=== PATIENT | female | born 1955 | race Caucasian/White ===

== ENCOUNTER → 2017-01-19 | Outpatient (CLI) | payer OTHER ==
[~2017-01-19] MED LIST: ASPIRIN81 M2 PO; ATENOLOL PO; BRILINTA90 MG PO; CARVEDILOL3.125 MG PO; DOCUSATE SODIU100 MG PO; FAMOTIDINE20 M1 PO; FLUOXETINE HCL40 M1 PO; GABAPENTIN600 MG PO; HUMALOG100 UNIT/1; LANTUS100 UNITS/ SUBQ; LASIX PO; LASIX80 MG PO; LIPITOR80 MG PO; LISINOPRIL PO; METOCLOPRAMIDE H5 MG PO; NEURONTIN300 MG PO; NEURONTIN600 MG PO; NORVASC PO; OMEPRAZOLE20 M2 PO; OMNICEF300 M1 PO; PATIENT'S PHARMACY; PROZAC40 M1 PO; RESTASIS1 EACH OU; TRESIBA FL100 UNIT/1 SUBQ; ZESTRIL40 MG PO
== END | disposition home or self-care (01) ==
LOC: CLAB 11:08
DX: E10.65 Type 1 diabetes mellitus with hyperglycemia (principal)
CPT/HCPCS: 36415; 83036

== ENCOUNTER → 2017-01-29 | Outpatient (CLI) | payer OTHER ==
[2017-01-29 15:21] LABS: URINE APPEARANCE CLOUDY; URINE BILIRUBIN NEG (NEG); URINE BLOOD NEG (NEG); URINE COLOR YELLOW; URINE GLUCOSE >1000 MG/DL (NEG); URINE KETONE NEG (NEG); URINE LEUKOCYTE ESTERASE 3+ (NEG); URINE NITRATE NEG (NEG); URINE PROTEIN NEG (NEG)
[2017-01-29 15:21] LABS: MEAN CELL VOLUME 89.8 FL (83-96); MEAN CORPUSCULAR HEMOGLOBIN 29.3 PG (28-34); MEAN CORPUSCULAR HGB CONC 32.6 g/dL (30-36); MEAN PLATELET VOLUME 8.8 FL (6.5-11.5); RED BLOOD COUNT 4.12 X10e (3.90-5.30); RED CELL DISTRIBUTION WIDTH 13.3 % (11.0-15.5); WHITE BLOOD COUNT 7.5 X10e3 (4.0-10.5)
[2017-01-29 15:23] LABS: URINE SOURCE CLEAN CATCH
[2017-01-29 15:26] LABS: URBCS1 AUWI 0-2 /[HPF] (0-2); URINE BACTERIA AUWI 4+ (NEGATIVE); URINE SQUAMOUS EPITHELIAL CELL NONE SEEN /[HPF]; UWBCS1 AUWI 50-100 (0-5)
[2017-01-29 15:46] LABS: BUN/CREATININE RATIO 27.27; CALCIUM SERUM 8.9 mg/dL (8.4-10.2); CREATININE SERUM 2.2 mg/dL (0.6-1.4); GLOM FILT RATE Estimated 23.4 mL/min (>60); PHOSPHOROUS 5.2 mg/dL (2.5-4.6)
[2017-01-29 15:53] LABS: POTASSIUM 5.6 mmol/L (3.5-5.1)
[2017-01-30 19:06] LABS: MICROALB UR (PNL) 1.9 mg/dL (***)
== END | disposition home or self-care (01) ==
LOC: CLAB 14:42
PROVIDERS: Internal Medicine Nephrology
DX: N18.3 Chronic kidney disease, stage 3 (moderate) (principal)
CPT/HCPCS: 36415; 80048; 81003; 82043; 82310; 82570; 83970; 84100; 85027

== ENCOUNTER 2017-02-27 19:55 | Inpatient (IN) | payer OTHER ==
--- NOTE | ~2017-02-27 | CR72 ---
[facility] A Service of [facility] & [facility] RADIOLOGY TEXT RESULTS PATIENT: RADHA RIBEIRO LOCATION: [address]08 : [birth year] UNIT #: [id number] AGE: [address]: Lorie Pratt MD SEX: F ORDER DR: [id number] [facility] [address] [place], [place] [address] [id number] MR#: [id number] #: [id number] NAME: RADHA RIBEIRO : 1955 SEX: F STUDY DATE/TIME: 02/28/2017 13:07 UNIT: [facility] ROOM: [facility] STUDY DESCRIPTION: CR Chest Single View Portable Attending Physician: Cherie Justice M.D. Ordering Physician: Vinnie Nesbitt M.D. Primary Care Physician: Nacho Booker M.D. MEDICAL IMAGING REPORT This report is preliminary unless electronic signature is present EXAM Portable chest 02/28/2017 HISTORY Respiratory failure and shortness of breath since 02/27/2017. Benign essential hypertension. FINDINGS The heart is normal in size. There has been interval development of infiltrate in the right upper lobe as well as mild pulmonary edema. There is blunting of the costophrenic angles bilaterally. No pneumothorax. IMPRESSION 1. Interval development of an infiltrate in the right upper lobe compared with 02/27/2017. 2. Interval development of mild pulmonary edema. Dictated by... Tod Lr M.D. THIS IS AN ELECTRONICALLY VERIFIED REPORT Tod Lr M.D. at 03/01/2017 8:08 AM GENEVIEVE/janice TD: 02/28/2017 13:42 JOB #: [id number] MEDICAL IMAGING REPORT Page 1 of 1 COPY
--- NOTE | ~2017-02-27 | HP ---
Unit #: [id number] #: [id number] Patient: RADHA RIBEIRO [id number] [address] [place], [place] [address] [id number] I MR#: [id number] NAME: RADHA RIBEIRO ROOM: [facility] Age: 62 Sex: F Admission Date: 02/27/2017 : 1955 Attending Physician: Cherie Justice M.D. Primary Care Physician: Nacho Booker M.D. HISTORY AND PHYSICAL CHIEF COMPLAINT Nausea, vomiting, high blood sugar. DISCUSSION This is a 62-year-old female with past medical history of coronary artery disease, history of hypertension, diabetes, dyslipidemia, GERD, anxiety, depression, diabetic peripheral neuropathy, chronic kidney disease (follows with Dr. Mckenna), obstructive sleep apnea and on CPAP at home. She had a cardiac cath, which was done on December 15, 2016 and showed LAD 100% occluded but distally filled by collaterals, left circumflex 20% stenosis, right coronary artery 30% stenosis. She was brought to the emergency room today with the chief complaint that she has been having nausea, vomiting, high blood sugar, and she was brought to the emergency room. In the ER she was found to have BUN of 60, creatinine 2.2, and potassium is 6.3, CO2 11, sodium 126, blood sugar 1,140. She was found to be in DKA, elevated lactic acid level, and she has been admitted. She denies chest pain. She says she has been having nausea, vomiting, high blood sugar, feels fatigued, tired. Denies chest pain. Denies loss of consciousness, headache, dizziness or any other complaint. PAST MEDICAL HISTORY 1. History of coronary artery disease status post cath in December 2016, this year. Showed LAD 100% but distally filled by collaterals, left circumflex 12% stenosis, right coronary artery 30% stenosis with ejection fraction 55%. 2. History of diabetes, on insulin pump. 3. Hypertension. 4. Dyslipidemia. 5. GERD. 6. Anxiety and depression. 7. Chronic kidney disease, followed by Dr. Mckenna. Her labs from here on January 29, 2017 shows BUN 60, creatinine 2.22. 8. History of obstructive sleep apnea, on CPAP. 9. Obesity. PAST SURGICAL HISTORY History of cardiac cath. SOCIAL HISTORY She denies smoking. She denies alcohol. She denies illicit drug use. FAMILY HISTORY She denies any family history of coronary artery disease or diabetes. Unit #: [id number] #: [id number] Patient: RADHA RIBEIRO MEDICATIONS FROM HOME 1. Neurontin 300 mg p.o. at dinnertime. 2. Lipitor 80 mg at bedtime. 3. Neurontin 300 mg daily in the morning and 600 mg at bedtime. 4. Norvasc 5 mg daily. 5. Zestril 40 mg daily. 6. Tenormin 100 mg daily. 7. Fluoxetine 40 mg b.i.d. 8. Lasix 80 mg daily. 9. Aspirin 81 mg daily. 10. Famotidine 20 mg daily. 11. Colace 100 mg daily. REVIEW OF SYSTEMS All review of systems is negative except as in history of present illness. PHYSICAL EXAMINATION GENERAL: Middle-aged female lying in bed comfortably. Currently not in any distress. She is alert, awake, oriented x3. CURRENT VITALS: Temp is 97.9, heart rate 103, respiratory 20, blood pressure 83/41. HEENT: Pupils are equal and reactive to light and accommodation. Head is normocephalic and atraumatic. NECK: Neck is supple. No JVD. HEART: S1, S2. Regular rate and rhythm. LUNGS: Lungs are clear to auscultation bilaterally. No rhonchi. No wheezing. ABDOMEN: Abdomen is soft, nontender, nondistended. Bowel sounds are positive. EXTREMITIES: Inspection is normal. No cyanosis. No clubbing. No edema. NEUROLOGIC: No focal neurologic deficits. Cranial nerves II-XII intact. SKIN: Skin is warm and dry. PSYCHIATRIC: Normal mood and affect. DIAGNOSTIC STUDIES LABORATORY WORKUP: Sodium 126, potassium 6.3, chloride 91, CO2 11, glucose 1,140, BUN 53, creatinine 2.9, AST 51, ALT 28, alkaline phosphatase 124. Beta hydroxybutyrate 7.92. Lactic acid level 4.6. White count 17, hemoglobin 10, hematocrit 33, platelets 241. ABG - pH 7.08, CO2 32, bicarb 9.7. Troponin 3.37, CK-MB 19.6. IMAGING: Chest x-ray shows no infiltrates. No acute findings. Also, chest x-ray shows mild vascular congestion, borderline cardiomegaly. Nonobstructive bowel gas pattern on abdominal series. ASSESSMENT AND PLAN 1. Diabetic ketoacidosis. She is on insulin pump at home. Will hold it. Start the patient on DKA insulin protocol. 2. Hypotension. She already received 3 liters of normal saline in the emergency room. Will start the patient on Levophed. 3. Non-ST elevation MA with recent cardiac cath in December 2016. Showed LAD 100% with good collaterals, filled by collaterals; left circumflex 20% stenosis and right coronary artery 30% stenosis. Will give Lovenox 1 mg/kg one dose, aspirin 325 and ask cardiology, Dr. Hill to evaluate while in the hospital. 4. Hypertension; now hypotensive. Hold all blood pressure medications. Hold Tenormin, Zestril, Norvasc. Unit #: [id number] #: [id number] Patient: RADHA RIBEIRO 5. History of dyslipidemia. Continue Lipitor. 6. History of GERD. 7. History of anxiety and depression. Hold fluoxetine at this time. 8. Diabetic peripheral neuropathy. Will hold Neurontin. 9. Chronic kidney disease. Will ask Dr. Mckenna to evaluate. 10. Hyperkalemia. The patient was already given (1) and also given calcium chloride. Will monitor. 11. History of GERD. Place on IV Protonix and Zofran. 12. Obstructive sleep apnea. Uses CPAP at home. 13. Obesity. Dictated by Delia Ocampo/junior TD: 02/28/2017 08:32 JOB #: [id number] HISTORY AND PHYSICAL Page 1 of 1 X X HISTORY AND PHYSICAL
--- NOTE | ~2017-02-27 | CR2 ---
[facility] A Service of [facility] & [facility] RADIOLOGY TEXT RESULTS PATIENT: RADHA RIBEIRO LOCATION: CICCU2 CICCU2-02 : 55 UNIT #: [id number] AGE: [address]: Cherie Justice MD SEX: F ORDER DR: [id number] [facility] [address] [place], [place] [address] [id number] MR#: [id number] Acc #: [id number] NAME: RADHA RIBEIRO : 1955 SEX: F STUDY DATE/TIME: 02/27/2017 20:40 UNIT: [facility] ROOM: [id number] STUDY DESCRIPTION: CR Abdomen Acute Series Attending Physician: Cherie Justice M.D. Ordering Physician: Socrates Robles M.D. Primary Care Physician: Nacho Booker M.D. MEDICAL IMAGING REPORT This report is preliminary unless electronic signature is present EXAM Acute abdominal series. HISTORY Chest pain, abdominal pain, nausea, vomiting, onset today. FINDINGS PA, upright view of the chest demonstrates moderate lung volumes satisfactory technique. Mild pulmonary vascular congestion. Borderline cardiomegaly. No free air noted under diaphragms. Supine and upright views of the abdomen demonstrates a nonobstructive bowel gas pattern. No abnormal masses or calcifications. No organomegaly. Osseous structures unremarkable. IMPRESSION 1. Borderline cardiomegaly. Mild pulmonary vascular congestion. 2. Nonobstructive bowel gas pattern. Minimal increase in colonic gas. Dictated by... Aminah Gustafson M.D. THIS IS AN ELECTRONICALLY VERIFIED REPORT Aminah Gustafson M.D. at 02/28/2017 9:16 PM Nilsa TD: 02/27/2017 23:33 JOB #: [id number] MEDICAL IMAGING REPORT Page 1 of 1 COPY
--- NOTE | ~2017-02-27 | EKG ---
PATIENT: RADHA RIBEIRO UNIT #: [id number] Ventricular Rate: 117 BPM Atrial Rate: 117 BPM P-R Interval: 172 ms QRS Duration: 94 ms Q-T Interval: 334 ms QTC Calculation(Bezet): 465 ms P [place]: 77 degrees Calculated R [place]: 50 degrees Calculated T [place]: 69 degrees Diagnosis Line: Sinus tachycardia Diagnosis Line: Low voltage QRS Diagnosis Line: Nonspecific ST abnormality Diagnosis Line: Abnormal ECG Diagnosis Line: When compared with ECG of 27-FEB-2017 20:17, Diagnosis Line: (unconfirmed) Diagnosis Line: ID interval has decreased Diagnosis Line: ST no longer depressed in Anterolateral leads Diagnosis Line: Confirmed by MIKKI RASHID MD ([id number]) on Diagnosis Line: 02/28/2017 10:47:44 PM INTERPRETING MD: URIEL
--- NOTE | ~2017-02-27 | EKG ---
PATIENT: RADHA RIBEIRO UNIT #: [id number] Ventricular Rate: 105 BPM Atrial Rate: 105 BPM P-R Interval: 210 ms QRS Duration: 82 ms Q-T Interval: 366 ms QTC Calculation(Bezet): 483 ms P [place]: 67 degrees Calculated R [place]: 2 degrees Calculated T [place]: 102 degrees Diagnosis Line: Sinus tachycardia with 1st degree A-V block Diagnosis Line: Low voltage QRS Diagnosis Line: Poor R wave progression questionable lead position Diagnosis Line: or body habitus Diagnosis Line: Abnormal ECG Diagnosis Line: When compared with ECG of 28-FEB-2017 06:50, Diagnosis Line: (unconfirmed) Diagnosis Line: AR interval has increased Diagnosis Line: Confirmed by MIKKI RASHID MD ([id number]) on Diagnosis Line: 02/28/2017 10:49:43 PM INTERPRETING MD: URIEL
--- NOTE | ~2017-02-27 | EKG ---
PATIENT: RADHA RIBEIRO UNIT #: [id number] Ventricular Rate: 96 BPM Atrial Rate: 96 BPM P-R Interval: 160 ms QRS Duration: 82 ms Q-T Interval: 332 ms QTC Calculation(Bezet): 419 ms P [place]: 66 degrees Calculated R [place]: 85 degrees Calculated T [place]: 92 degrees Diagnosis Line: Normal sinus rhythm Diagnosis Line: Low voltage QRS Diagnosis Line: Possible Anterolateral infarct (cited on or before Diagnosis Line: 01-MAR-2017) Diagnosis Line: Borderline ECG Diagnosis Line: When compared with ECG of 28-FEB-2017 12:10, Diagnosis Line: NC interval has decreased Diagnosis Line: Questionable change in initial forces of Septal Diagnosis Line: leads Diagnosis Line: QT has shortened Diagnosis Line: Confirmed by MARK MIN, BUFFY ([id number]) on 03/02/2017 Diagnosis Line: 5:41:03 AM INTERPRETING MD: MARK MIN
--- NOTE | ~2017-02-27 | CO ---
Unit #: [id number] #: [id number] Patient: RADHA RIBEIRO [id number] [address] [address] [id number] I MR#: [id number] NAME: RADHA RIBEIRO ROOM: 319 Age: 62 Sex: F Admission Date: 02/27/2017 : 1955 Attending Physician: Lorie Pratt M.D. Primary Care Physician: Nacho Booker M.D. Consultation Date: 03/01/2017 CONSULTATION REPORT REASON FOR CONSULT Diabetic ketoacidosis, management of insulin drip. This is a 62-year-old female with a history of multiple medical problems who has been admitted with non-ST segment elevation NV. Additionally, workup in the ER showed severe diabetic ketoacidosis with acute renal failure with a creatinine of 2.2 and potassium of 6.3 and blood glucose over 1000. She was admitted to the unit bed. Insulin drip has been started and IV hydration. I have been asked to see the patient for further management. MEDICAL HISTORY 1. Type 1 diabetes mellitus, on insulin pump. 2. Coronary artery disease. 3. Hypertension. 4. Hyperlipidemia. 5. Chronic kidney disease. PAST SURGICAL HISTORY Cardiac cath recently. SOCIAL HISTORY Declines tobacco, alcohol or illicit drugs. FAMILY HISTORY Noncontributory. MEDICATIONS 1. Insulin pump - basal rate is 1.5 units/hour and bolus is 1 unit for every 15 g carbohydrates. 2. Norvasc 5 mg daily. 3. Zestril. 4. Tenormin. 5. Fluoxetine. 6. Lasix. 7. Aspirin. 8. Famotidine. 9. Colace. Current medication list is reviewed. The patient is on insulin drip. REVIEW OF SYSTEMS Remarkable for fatigue, shortness of air, nausea, vomiting, shortness of air, some abdominal pain, generalized weakness. No fever or chills, Unit #: [id number] #: [id number] Patient: RADHA RIBEIRO (1) , frequency, urgency. The rest of the twelve point review of systems is unremarkable. PHYSICAL EXAMINATION GENERAL APPEARANCE: She does have shortness of air. VITAL SIGNS: Temperature 99.3, pulse is 106, respirations 18, blood pressure 146/58. HEENT: EOMI. Pupils equal, react to light. NECK: Supple. No thyromegaly noted. CHEST: Decreased air entry with crackles bilaterally. CVS: Regular rhythm. S1 and S2. ABDOMEN: Soft, nontender. Bowel sounds positive. EXTREMITIES: No edema or ulcers are noted. DIAGNOSTIC STUDIES LABORATORY: Labs are reviewed. Glucose 178, creatinine 1.6, sodium is 135, potassium 3.9, CO2 22, phosphorus 2.3, positive ketones. Troponin 35, 4.96. A1c 8.9. ASSESSMENT 1. Diabetic ketoacidosis which is resolved. 2. Acute non-ST segment elevation myocardial infarction. 3. Acute kidney injury, improved. 4. History of chronic kidney disease. 5. Congestive heart failure, ejection fraction is 40%. PLAN Due to the patient's underlying heart condition, will change the IV fluids to D10 at 30 mL/hour. Start Reglan 10 mg IV q.6. Continue insulin drip. Goal is to keep the blood glucose between 80 to (2) mg/dl. Insulin pump has been discontinued already since admission. Monitor electrolytes, sodium, magnesium, phosphorus. Monitor renal function closely. Thanks again for this consultation. Dictated by... Delia Trinh/hemalatha TD: 03/03/2017 07:54 JOB #: [id number] Unit #: [id number] #: [id number] Patient: RADHA RIBEIRO CONSULTATION REPORT Page 1 of 1 X Bradford Allan MD CONSULTATION REPORT
--- NOTE | ~2017-02-27 | CO ---
Unit #: [id number] #: [id number] Patient: RADHA RIBEIRO [id number] [address] [place], [place] [address] [id number] I MR#: [id number] NAME: RADHA RIBEIRO ROOM: [facility] Age: 62 Sex: F Admission Date: 02/27/2017 : 1955 Attending Physician: Cherie Justice M.D. Primary Care Physician: Nacho Booker M.D. Consultation Date: 02/28/2017 CONSULTATION REPORT REASON FOR CONSULTATION Elevated troponin, history of coronary artery disease. HISTORY OF PRESENT ILLNESS The patient is a 62-year-old female, who is an office patient of Dr. Villafuerte. She has known history of coronary artery disease. She underwent attempted laser atherectomy of occluded LAD in December of this year that was unsuccessful. Other coronary anatomy revealed was nonobstructive with moderate nondominant circumflex mid 20% and right coronary artery large dominant proximal 30%. She had normal LV systolic function at that time with EF of 55%. She was treated medically on aspirin, Plavix, and Ranexa. The patient yesterday started having episodes of nausea and vomiting. Her blood sugar went up to 1100. Her family brought her to the emergency room, where she was in respiratory distress, and was placed on a BiPAP machine. She also has chronic kidney disease with baseline creatinine of 2, and was placed on BiPAP for supportive care. Her chest x-ray showed pulmonary edema. The patient had an initial troponin of 6.21, and subsequent troponin was 15.9. She describes some chest heaviness after eating a meal, but is currently angina free. Her family is at bedside. She is awake and alert, in no acute distress. PAST MEDICAL HISTORY Coronary artery disease with cardiac cath in December of 2016, unsuccessful laser atherectomy of occluded LAD, on medical therapy. Circumflex mid 20% RCA, proximal to mid 30%, normal LV function with EF of 55%. Insulin-dependent diabetes since the age of 17, on insulin pump therapy, hypertension, hyperlipidemia, GERD, anxiety, depression, chronic kidney disease, obstructive sleep apnea, obesity. SOCIAL HISTORY The patient does not smoke. No alcohol or drug abuse. FAMILY HISTORY Noncontributory. DIAGNOSTIC STUDIES IMAGING STUDIES: EKG shows sinus rhythm with initial ST depression in 1 and aVF, which has currently resolved, poor R-wave progression. LABORATORY RESULTS: Troponin 6.21, subsequent 15.9. White blood cell count 24.2, hemoglobin 11.1, hematocrit 35.3, and platelet count 313. Sodium was 137, potassium 3.8, chloride 104, CO2 21, BUN 50, creatinine 2.7, glucose 576 this morning. Unit #: [id number] #: [id number] Patient: RADHA RIBEIRO ALLERGIES No known drug allergies. HOME MEDICATIONS NovoLog and insulin pump, Paxil 40 mg b.i.d., Lasix 80 mg daily, aspirin 81 mg daily, Pepcid 20 mg daily, Colace 100 mg at bedtime, Tenormin 100 mg at bedtime, lisinopril 40 mg at bedtime, Norvasc 5 mg at bedtime, Neurontin 600 mg at bedtime and 300 mg in the morning and 300 mg with dinner, Lipitor 80 mg at bedtime. REVIEW OF SYSTEMS Nausea, vomiting, diarrhea, generalized not feeling well, chest heaviness after eating meal, as well as shortness of breath. Also, complains of fever. No cough. No chills, headaches, numbness, tingling, syncope, near syncope, or changes in visual field. All other review of systems is negative. PHYSICAL EXAMINATION GENERAL: The patient is in no acute distress. Color is pink. SKIN: Warm and dry. VITAL SIGNS: Low-grade fever 99.5; heart rate 111, sinus tach; blood pressure 141/54. HEENT: Normal carotid upstrokes. No auscultated bruit. Negative JVD. Lying supine. Negative hepatojugular reflux. Pupils are equal, round, and reactive. NEUROLOGIC: No focal motor or sensory deficits. CHEST: Respirations are regular, mild accessory muscle use at rest, but for the most part nonlabored. Bilateral breath sounds are diminished. HEART: S1 and S2. Regular rate and rhythm. No murmurs, rubs, or gallops. ABDOMEN: Soft, nontender, and nondistended. Positive bowel sounds in all 4 quadrants. No ascites noted. EXTREMITIES: Bilateral lower extremities have some trace edema. DP/PT pulses are 2+. Capillary refill less than 3 seconds. IMPRESSION 1. Sepsis. 2. Urinary tract infection. 3. Diabetic ketoacidosis. 4. Acute probable diastolic congestive heart failure, multifactorial. 5. Coronary artery disease with unsuccessful laser atherectomy of occluded LAD in December of this year. 6. Non ST-elevation myocardial infarction, with peak troponin at this time of 15.9. 7. Hypertension. 8. Insulin-dependent diabetes since age 17. 9. Hyperlipidemia. PLAN The patient got one dose of Lovenox last night. Troponin is still increasing. We will start on low-dose heparin drip with boluses. We will give a loading dose of Brilinta and start on Brilinta 90 mg b.i.d. this p.m. We will check a 2D echo with Doppler to assess any drop in LV function. Continue aspirin 81 mg daily and Lipitor 80 mg. Also, we will give a one time dose of IV Bumex until Nephrology sees her, and check serial cardiac enzymes. Unit #: [id number] #: [id number] Patient: RADHA RIBEIRO ANN Dictated by... Dorothy Catherine APRN for Delia Ocampo/prakash TD: 02/28/2017 13:03 JOB #: [id number] CONSULTATION REPORT Page 1 of 1 X X CONSULTATION REPORT
--- NOTE | ~2017-02-27 | CO ---
Unit #: [id number] #: [id number] Patient: RADHA RIBEIRO [id number] [address] [place], [place] [address] [id number] Shanice MR#: [id number] NAME: RADHA RIBEIRO ROOM: [facility] Age: 62 Sex: F Admission Date: 02/27/2017 : 1955 Attending Physician: Cherie Justice M.D. Primary Care Physician: Nacho Booker M.D. CONSULTATION REPORT REASON FOR CONSULTATION Critical care management. CHIEF COMPLAINT Nausea, vomiting, and high blood sugars. HISTORY 62-year-old female with past medical history of coronary artery disease, hypertension, diabetes, diabetes, gastroesophageal reflux disease, anxiety, depression, peripheral neuropathy, chronic kidney disease, history of obstructive sleep apnea on home CPAP who was brought to the emergency room with a complaint of nausea, vomiting, high blood sugar and was found to be in diabetic ketoacidosis and I was very lethargic. Has elevated troponin, complaining of some chest discomfort. I am seeing the patient at the bedside and currently on BiPAP. REVIEW OF SYSTEMS Positive pallor. Positive edema. No signs of jaundice. The rest is as per history of present illness. The rest of the twelve point review of system has been reviewed and is negative. PAST MEDICAL HISTORY Diabetes mellitus, hypertension, dyslipidemia, anxiety, depression, chronic kidney disease, history of obstructive sleep apnea, obesity. PAST SURGICAL HISTORY Cardiac catheterization. SOCIAL HISTORY Nonsmoker. No alcohol or drug abuse. FAMILY HISTORY Coronary artery disease, diabetes. MEDICATIONS Neurontin, Lipitor, Norvasc, Zestril, Tenormin, fluoxetine, Lasix, aspirin, famotidine, Colace. PHYSICAL EXAMINATION VITAL SIGNS: Temperature 98, pulse 100, respirations 16, blood pressure 102/70. NEUROLOGIC: She is lethargic. CVS: S1+ S2. LUNGS: Respirations bilateral air entry. Bilateral mild rhonchi. GI: Unit #: [id number] #: [id number] Patient: RADHA RIBEIRO Nontender, soft. Bowel sounds positive. EXTREMITIES: Positive edema. SKIN: No rashes, no ulcers. LYMPHATICS: No lymphadenopathy. ASSESSMENT AND PLAN 1. Acute TX and diabetic ketoacidosis. 2. Acute on chronic kidney disease, as well as hyponatremia and hyperkalemia. 3. Hypertension. 4. Gastroesophageal reflux disease. At this point, plan is to continue patient on a diabetic ketoacidosis protocol, insulin, continue BiPAP, continue oxygen, bronchodilator, IV fluid per nephrology. GI and DVT prophylaxis. Cardiology consultation started anticoagulation. Patient will be closely monitored. Please see orders for plans. Thank you very much for this consultation. We will continue to monitor the patient also. Follow cultures. Still continue empiric Rocephin. Patient will be closely monitored. Dictated by... Vinnie Nesbitt M.D. LIDYA/betsy TD: 02/28/2017 13:01 JOB #: [id number] CONSULTATION REPORT Page 1 of 1 X Vinnie Nesbitt MD CONSULTATION REPORT
--- NOTE | ~2017-02-27 | EKG ---
PATIENT: RADHA RIBEIRO UNIT #: [id number] Ventricular Rate: 92 BPM Atrial Rate: 92 BPM P-R Interval: 158 ms QRS Duration: 88 ms Q-T Interval: 382 ms QTC Calculation(Bezet): 472 ms P [place]: 68 degrees Calculated R [place]: 36 degrees Calculated T [place]: -149 degrees Diagnosis Line: Normal sinus rhythm Diagnosis Line: Low voltage QRS Diagnosis Line: Poor R wave progression questionable lead position Diagnosis Line: or body habitus Diagnosis Line: T wave abnormality, consider lateral ischemia Diagnosis Line: Abnormal ECG Diagnosis Line: When compared with ECG of 01-MAR-2017 06:13, Diagnosis Line: No significant change was found Diagnosis Line: Confirmed by MIKKI RASHID MD ([id number]) on Diagnosis Line: 03/03/2017 10:48:33 AM INTERPRETING MD: URIEL
--- NOTE | ~2017-02-27 | EKG ---
PATIENT: RADHA RIBEIRO UNIT #: [id number] Ventricular Rate: 83 BPM Atrial Rate: 83 BPM P-R Interval: 216 ms QRS Duration: 104 ms Q-T Interval: 414 ms QTC Calculation(Bezet): 486 ms P [place]: 69 degrees Calculated R [place]: -16 degrees Calculated T [place]: 71 degrees Diagnosis Line: Sinus rhythm with 1st degree A-V block Diagnosis Line: Marked ST abnormality, possible lateral Diagnosis Line: subendocardial injury Diagnosis Line: Abnormal ECG Diagnosis Line: No previous ECGs available Diagnosis Line: Confirmed by MIKKI RASHID MD ([id number]) on Diagnosis Line: 02/28/2017 10:40:19 PM INTERPRETING MD: URIEL
--- NOTE | ~2017-02-27 | A ---
[facility] Nutrition Therapy DATE: 03/01/17 Patient: RADHA RIBEIRO Physician: GER Address: [address] [place] [address] Room/Bed: [address], Zip: [place] [address] Admit Date: 02/27/17 Date of : 55 Height: 5 7 Weight: 232 105.5 NUTRITIONAL ASSESSMENT: REASON: DKA 62 y/o female admitted for DKA, AL PMH: insulin-dependent diebetes type 2, EF 40%, CAD, CKD, HTN, GERD, anxiety, depression Anthropometrics: ht: 5'7" wt: 232# BMI: 36 Labs: Glu 825 (admit), accuchecks 51-168, BUN 34, Creat 1.6, Ca++ 8.1, Alb 2.8, AST 112, ALT 50, Phos 2.3, A1c 8.9 (january 2017), GFR 34.2 Meds: levophed, insulin drip, heparin, atorvastin calcium, mag-sulfate, dextrose 5%, protonix IV, zofran I/O & Bowel function: 6667/3755. BM 02/27 Skin Integrity: WNL. Edema: generalized- trace Diet: clear liquid- h20 and diet soda Assessment: Chart reviewed, events noted. Pt in ICU for DKA, AL. Pt is currently on clear liquids- H20 and diet soda only, reporting normal appetite at this time. RD international project manager visited pt at bedside, family also in room. Pt reports eating a diabetic diet at home and counting her carbs. RD international project manager provided written and verbal education on carbohydrate counting. Pt voiced a few questions about protein shakes and drinks and RD international project manager provided information. No other questions at this time. RD will continue to follow. Dx: Impaired glucose utilization r/t DM, lifestyle AEB DKA, glucose 851 Intervention: 1. Diet education 2. Clear liquid diet Monitoring, Evaluation and Goals: 1. Labs; accuchecks, A1c, electrolytes 2. PO intake; once medically feasible and diet advanced, consume >50% all meals 3. Weight; promote gradual weight loss towards healthy BMI range Recommendations: 1. Once diet is advanced to full liquid, please order glucerna shakes BID. 2. Once diet is advanced to solids, recommend consistent carbohydrate diet. [facility] Nutrition Therapy DATE: 03/01/17 Patient: RADHA RIBEIRO Physician: GER Address: [address] [place] [address] Room/Bed: [address] [facility], Zip: [place] [address] Admit Date: 02/27/17 Date of : 55 Height: 5 7 Weight: 232 105.5 3. Please obtain new HGBA1c. RD will f/u per protocol as pt is at mild-moderate nutritional risk. Respectfully, JAIRO ROBERT RD, LD Monica Moore RD, LD Food and Nutritional Services [facility] cc: client file
--- NOTE | ~2017-02-27 | CR72 ---
[facility] A Service of [facility] RADIOLOGY TEXT RESULTS PATIENT: RADHA RIBEIRO LOCATION: [address] : 55 UNIT #: [id number] AGE: [address]: Lorie Pratt MD SEX: F ORDER DR: [id number] [facility] [address] [place], [place] [address] [id number] I MR#: [id number] Acc #: [id number] NAME: RADHA RIBEIRO : 1955 SEX: F STUDY DATE/TIME: 03/01/2017 2:34 UNIT: [facility] ROOM: [facility] STUDY DESCRIPTION: CR Chest Single View Portable Attending Physician: Cherie Justice M.D. Ordering Physician: Vinnie Nesbitt M.D. Primary Care Physician: Nacho Booker M.D. MEDICAL IMAGING REPORT This report is preliminary unless electronic signature is present EXAM Portable chest INDICATIONS Shortness of air for the past 2 days. PROCEDURE Frontal view chest. COMPARISON 02/28/2017 FINDINGS Moderate cardiomegaly and central pulmonary vascular congestion, unchanged. No new dense consolidation. Possible trace right effusion. No pneumothorax. IMPRESSION No change from yesterday. Dictated by... Silver Go M.D. THIS IS AN ELECTRONICALLY VERIFIED REPORT Silver Go M.D. at 03/01/2017 10:00 PM EED/gely TD: 03/01/2017 03:13 JOB #: [id number] MEDICAL IMAGING REPORT [facility] A Service of [facility] RADIOLOGY TEXT RESULTS PATIENT: RADHA RIBEIRO [facility] 55 UNIT #: [id number] AGE: [address]: Lorie Pratt MD SEX: F ORDER DR: Page 1 of 1 COPY
--- NOTE | ~2017-02-27 | DS ---
Unit #: [id number] #: [id number] Patient: RADHA KEATING [id number] [address] [address] [id number] I MR#: [id number] NAME: RADHA KEATING ROOM: 319 Age: 62 Sex: F Admission Date: 02/27/2017 : 1955 Discharge Date: 03/05/2017 Attending Physician: Lorie Pratt M.D. Primary Care Physician: Nacho Booker M.D. DISCHARGE SUMMARY PRINCIPAL DIAGNOSES 1. Septic shock secondary to Klebsiella pneumoniae urinary tract infection. 2. Non-ST segment elevation myocardial infarction with current medical therapy. 3. Diabetic ketoacidosis. 4. Chronic kidney disease stage 3 with baseline creatinine of 2.2. Discharge creatinine is 1.5. 5. Coronary artery disease. 6. Hypokalemia. 7. Systolic congestive heart failure with mild acute exacerbation, ejection fraction 40% to 45%. 8. Diabetes mellitus type 2, insulin requiring. 9. Thrombocytopenia, likely heparin-induced. 10. Obstructive sleep apnea. 11. Hyperlipidemia. 12. Gastroesophageal reflux disease. 13. Anxiety and depression. 14. Diabetic peripheral neuropathy. 15. Obesity. 16. Moderate protein malnutrition. 17. Normocytic anemia. 18. Nausea and vomiting, likely secondary to diabetic gastroparesis. 19. Hyperkalemia. CONSULTANTS 1. Dr. Lopez - Pulmonology. 2. Dr. Angeles - Cardiology. 3. Dr. Allan - Endocrinology. 4. Dr. Cartwright - Nephrology. PROCEDURES 1. Two dimensional echocardiogram on February 28, 2017 with hypokinesis of the distal septum and inferior apical wall. Ejection fraction of 40% to 45%. Mild mitral regurgitation, mild tricuspid regurgitation. 2. KUB on February 27, 2017, with cardiomegaly, nonobstructive bowel gas pattern. 3. Chest x-ray on February 28 and with an infiltrate in the right upper lobe and changes of pulmonary edema. CLINICAL HISTORY/HOSPITAL COURSE Ms. Keating is a very nice 62-year-old female who was brought to the emergency department with nausea, vomiting and high blood sugar. In the ER, she was found to have a potassium of 6.3, a sodium level of Unit #: [id number] #: [id number] Patient: RADHA KEATING 126, and a blood sugar of greater than 1100. She was found to be in DKA. She was subsequently admitted to the ICU and placed on insulin drip. Dr. Allan was consulted as was Dr. Lopez for ICU level care. Unfortunately, following admission and despite appropriate fluid resuscitation, the patient developed significant hypotension in addition to some hypoxia. The patient was also found to have urinary tract infection. She was placed on aggressive IV hydration, IV antibiotics and oxygen therapy. At this time, she was also found to have an elevated troponin of 15.9 for which cardiology was also consulted. In regards to patient's elevated troponin, her troponin subsequently peaked at 68.03. She remained chest pain free. The patient has known LAD disease with collateral fill and attempts at laser atherotomy in the past have been unsuccessful. Given her known anatomy, which I will not this last attempt at laser atherotomy was in December 2016, medical management only was initiated. 2D echo did reveal some mild systolic dysfunction and patient did receive some IV diuretics. Fortunately, from a cardiac standpoint, she has remained stable. On day of discharge, most recent troponin a day ago was 6.11 and patient has remained stable. Attempts to reinitiate ESTEVAN inhibitor and beta galina, however, resulted in some hypotension. I am going to decrease her dose of beta galina, hold her lisinopril for now, and these can be initiated by Dr. Angeles as an outpatient if necessary. In regards to patient's respiratory failure, she did require BiPAP therapy for approximately 24 hours. However, since that time she has been transitioned to nasal cannula and is now off oxygen complete. She did have a questionable right upper lobe infiltrate, but she is going to be discharged on antibiotics as outlined below. In regards to patient's UTI, her urine culture ultimately grew Klebsiella pneumoniae. She will repeat a one week course of antibiotics which is only one more day following discharge. In regards to patient's DKA, she was followed by Dr. Allan. She was taken off the insulin drip, transitioned to subcutaneous insulin, and then transitioned back to her insulin pump. However, her sugars remain significantly elevated on her insulin pump and she has been transitioned back to subcutaneous insulin. I am awaiting his recommendations regarding reinitiation of insulin pump prior to discharge. From a renal standpoint, patient has been stable since admission. Her baseline creatinine is 2.2 and on day of discharge creatinine has generally been running 1.3 to 1.5. I think the small jump is due to perhaps some mild dehydration due to her hyperglycemia in addition to reinitiation of estevan inhibitor which will now be stopped. She can follow up with Dr. Cartwright, who is her primary blower installer, as an outpatient. I anticipate discharge home later today assuming blood pressure is stable and sugars improve. DISCHARGE CONDITION Stable. DISCHARGE STATUS Discharge to home. Unit #: [id number] #: [id number] Patient: RADHA KEATING DISCHARGE MEDICATIONS 1. Neurontin 300 mg in the morning, 300 at bedtime and 600 at bedtime. 2. Fluoxetine 40 mg b.i.d. 3. Lipitor 80 mg at bedtime. 4. Coreg 3.125 mg p.o. b.i.d. 5. Colace 100 mg at bedtime. 6. Omnicef 300 mg p.o. b.i.d. for another one day. 7. Lasix 20 mg daily. 8. Reglan 5 mg p.o. q.6 hours for nausea and vomiting. 9. Famotidine 20 mg daily. 10. Aspirin 81 mg daily. 11. Brilinta 90 mg b.i.d. 12. Please note - insulin will be dictated as an addendum. DISCHARGE INSTRUCTIONS The patient was instructed to follow a heart healthy CCD diet. She will obtain Accu-Cheks at home as instructed by Dr. Allan and/or reinitiate her insulin pump per his instructions. She can increase her activity as tolerated. FOLLOWUP The patient will follow up with Dr. Angeles in approximately two to three weeks. Can re-evaluate blood pressure as an outpatient and initiate ESTEVAN inhibitor and/or increase dose of Coreg as necessary. She will follow up with her primary blower installer, as previously scheduled. She will follow up with her primary care provider, Dr. Booker, in two weeks as well. Time spent on discharge - 53 minutes. Dictated by... Lorie Pratt M.D. Adina TD: 03/05/2017 13:00 JOB #: [id number] DISCHARGE SUMMARY Page 1 of 1 X Lorie Pratt MD X DISCHARGE SUMMARY
[2017-02-27 20:32] LABS: POC - CKMB 19.6 ng/mL (0.0-7.9); POC - TROPONIN 3.37 ng/mL (<=0.05)
[2017-02-27 20:52] LABS: ARTERIAL BLD GAS O2 SATURATION 88.9 % (90.0-100.0); ARTERIAL BLOOD GAS CARBOXY HB 0.9 %sat (0.0-9.0); ARTERIAL BLOOD GAS HCO3 9.7 mmol/L; ARTERIAL BLOOD GAS PCO2 32.8 mmHg (35.0-45.0)
[2017-02-27 20:54] LABS: ARTERIAL BLOOD GAS ART SITE LEFT BRACHIAL; ARTERIAL BLOOD GAS PO2 73.6 mmHg (80.0-100); ARTERIAL BLOOD GAS pH 7.081 (7.350-7.450); ARTERIAL DRAW? YES
[2017-02-27 20:55] LABS: BASOPHIL% 0.2 % (0-2.5); DIFF IND YES; HEMATOCRIT 33.9 % (35.0-45.0); HEMOGLOBIN 10.4 gm/dL (12.0-16.0); LYMPHOCYTE# 0.7 X10e3 (1.0-3.5); LYMPHOCYTE% 3.9 % (17.0-45.0); MEAN CELL VOLUME 97.9 FL (83-96); MEAN CORPUSCULAR HEMOGLOBIN 29.9 PG (28-34); MEAN CORPUSCULAR HGB CONC 30.6 g/dL (30-36); MEAN PLATELET VOLUME 10.5 FL (6.5-11.5); MONOCYTE# 1.4 X10e3 (0-1.0); MONOCYTE% 8.3 % (3.0-12.0); NEUTROPHIL# 15.1 X10e3 (1.5-7.1); NEUTROPHIL% 87.6 % (40-75); PLATELET COUNT 241 X10e3 (140-420); RED BLOOD COUNT 3.46 X10e (3.90-5.30); RED CELL DISTRIBUTION WIDTH 15.4 % (11.0-15.5); WHITE BLOOD COUNT 17.2 X10e3 (4.0-10.5)
[2017-02-27] MEDS ORDERED: LASIX80 MG PO (20:56)
[2017-02-27] MEDS ORDERED: FLUOXETINE HCL40 M1 PO (20:56)
[2017-02-27] MEDS ORDERED: FAMOTIDINE20 M1 PO (20:57)
[2017-02-27] MEDS ORDERED: DOCUSATE SODIU100 MG PO (20:57)
[2017-02-27] MEDS ORDERED: ASPIRIN81 M2 PO (20:57)
[2017-02-27] MEDS ORDERED: ZESTRIL40 MG PO (20:58)
[2017-02-27] MEDS ORDERED: NORVASC PO (20:58)
[2017-02-27] MEDS ORDERED: ATENOLOL PO (20:58)
[2017-02-27] MEDS ORDERED: NEURONTIN600 MG PO (20:59)
[2017-02-27] MEDS ORDERED: NEURONTIN300 MG PO ×2 (20:59→21:00)
[2017-02-27] MEDS ORDERED: LIPITOR80 MG PO (21:00)
[2017-02-27 21:16] LABS: PLATELET ESTIMATE NORMAL (NORMAL); RBC NORMAL YES
[2017-02-27 21:18] LABS: ALBUMIN SERUM 3.2 g/dL (3.5-5.0); BETA HYDROXYBUTYRATE 7.92 MMOL/L (0.02-0.27); BILIRUBIN, DIRECT 0.3 mg/dL (0.0-0.2); BILIRUBIN,INDIRECT 1.1 mg/dL (0.0-0.9); BILIRUBIN,TOTAL 1.4 mg/dL (0.2-2.0); BUN/CREATININE RATIO 18.27; CREATININE SERUM 2.9 mg/dL (0.6-1.4); GLOM FILT RATE Estimated 16.7 mL/min (>60); PROTEIN TOTAL SERUM 6.1 g/dL (6.0-8.3)
[2017-02-27 21:21] LABS: POTASSIUM 6.3 mmol/L (3.5-5.1)
[2017-02-27 22:15] LABS: URINE SOURCE CLEAN CATCH
[2017-02-27 22:20] LABS: URINE APPEARANCE CLOUDY; URINE BILIRUBIN NEG (NEG); URINE BLOOD TRACE (NEG); URINE COLOR YELLOW; URINE GLUCOSE >1000 MG/DL (NEG); URINE KETONE 1+ (NEG); URINE LEUKOCYTE ESTERASE 1+ (NEG); URINE NITRATE NEG (NEG); URINE PROTEIN NEG (NEG); URINE SPECIFIC GRAVITY 1.023 (1.003-1.035); URINE UROBILINOGEN 0.2 MG/DL (NEG)
[2017-02-27 22:23] LABS: CULTURE INDICATED? YES; URBCS1 AUWI 0-2 /[HPF] (0-2); URINE BACTERIA AUWI 4+ (NEGATIVE); URINE SQUAMOUS EPITHELIAL CELL OCC /[HPF]; UWBCS1 AUWI 50-100 (0-5)
[2017-02-27 23:35] LABS: POC - CKMB 24.3 ng/mL (0.0-7.9); POC - TROPONIN 6.21 ng/mL (<=0.05)
[2017-02-28 00:16] LABS: BUN/CREATININE RATIO 16.25; CALCIUM SERUM 8.6 mg/dL (8.4-10.2); CREATININE SERUM 3.2 mg/dL (0.6-1.4); GLOM FILT RATE Estimated 14.8 mL/min (>60); POTASSIUM 4.9 mmol/L (3.5-5.1)
[2017-02-28 01:31] LABS: ARTERIAL BLD GAS O2 SATURATION 88.9 % (90.0-100.0); ARTERIAL BLOOD GAS HCO3 11.6 mmol/L; ARTERIAL BLOOD GAS MET HB 0.5 %sat (0.0-2.0); ARTERIAL BLOOD GAS PCO2 34.6 mmHg (35.0-45.0)
[2017-02-28 02:18] LABS: ARTERIAL BLOOD GAS ALLEN TEST NORMAL; ARTERIAL BLOOD GAS ART SITE RIGHT RADIAL; ARTERIAL BLOOD GAS DELIVERY NASAL CANNULA; ARTERIAL BLOOD GAS PO2 65.3 mmHg (80.0-100); ARTERIAL BLOOD GAS pH 7.132 (7.350-7.450); ARTERIAL DRAW? YES
[2017-02-28 04:31] LABS: BASOPHIL% 0.2 % (0-2.5); DIFF IND NO; EOSINOPHIL# 0.1 X10e3 (0-0.7); EOSINOPHIL% 0.3 % (0.0-7.0); HEMATOCRIT 35.3 % (35.0-45.0); HEMOGLOBIN 11.1 gm/dL (12.0-16.0); LYMPHOCYTE# 1.2 X10e3 (1.0-3.5); LYMPHOCYTE% 4.8 % (17.0-45.0); MEAN CELL VOLUME 93.7 FL (83-96); MEAN CORPUSCULAR HEMOGLOBIN 29.4 PG (28-34); MEAN CORPUSCULAR HGB CONC 31.3 g/dL (30-36); MEAN PLATELET VOLUME 8.7 FL (6.5-11.5); MONOCYTE# 2.1 X10e3 (0-1.0); MONOCYTE% 8.6 % (3.0-12.0); NEUTROPHIL# 20.9 X10e3 (1.5-7.1); NEUTROPHIL% 86.1 % (40-75); PLATELET COUNT 313 X10e3 (140-420); RED BLOOD COUNT 3.77 X10e (3.90-5.30); RED CELL DISTRIBUTION WIDTH 13.3 % (11.0-15.5); WHITE BLOOD COUNT 24.2 X10e3 (4.0-10.5)
[2017-02-28 05:05] LABS: %MB 12.1 % (0.0-4.0); MB 94.3 ng/ml
[2017-02-28 05:06] LABS: BILIRUBIN,TOTAL 0.4 mg/dL (0.2-2.0); BUN/CREATININE RATIO 18.14; CALCIUM SERUM 7.5 mg/dL (8.4-10.2); CREATININE SERUM 2.7 mg/dL (0.6-1.4); GLOM FILT RATE Estimated 18.2 mL/min (>60); PHOSPHOROUS 4.3 mg/dL (2.5-4.6); POTASSIUM 3.8 mmol/L (3.5-5.1); PROTEIN TOTAL SERUM 5.8 g/dL (6.0-8.3)
[2017-02-28 07:22] LABS: ARTERIAL BLD GAS O2 SATURATION 98.8 % (90.0-100.0); ARTERIAL BLOOD GAS CARBOXY HB 0.3 %sat (0.0-9.0); ARTERIAL BLOOD GAS HCO3 19.7 mmol/L; ARTERIAL BLOOD GAS PCO2 45.8 mmHg (35.0-45.0); ARTERIAL BLOOD GAS pH 7.242 (7.350-7.450)
[2017-02-28 07:23] LABS: ARTERIAL BLOOD GAS ART SITE RIGHT RADIAL; ARTERIAL DRAW? YES
[2017-02-28 08:33] LABS: BUN/CREATININE RATIO 18.51; CALCIUM SERUM 8.4 mg/dL (8.4-10.2); CREATININE SERUM 2.7 mg/dL (0.6-1.4); GLOM FILT RATE Estimated 18.2 mL/min (>60); POTASSIUM 3.8 mmol/L (3.5-5.1)
[2017-02-28 12:53] LABS: %MB 12.9 % (0.0-4.0); MB 222.5 ng/ml
[2017-02-28 14:41] LABS: BUN/CREATININE RATIO 20.9; CALCIUM SERUM 8.3 mg/dL (8.4-10.2); CREATININE SERUM 2.2 mg/dL (0.6-1.4); GLOM FILT RATE Estimated 23.3 mL/min (>60); POTASSIUM 3.3 mmol/L (3.5-5.1)
[2017-02-28 18:43] LABS: %MB 12.7 % (0.0-4.0); MB 228.3 ng/ml
[2017-02-28 21:07] LABS: BUN/CREATININE RATIO 19.04; CALCIUM SERUM 8.1 mg/dL (8.4-10.2); CREATININE SERUM 2.1 mg/dL (0.6-1.4); GLOM FILT RATE Estimated 24.6 mL/min (>60); POTASSIUM 3.4 mmol/L (3.5-5.1)
[2017-02-28 21:57] LABS: BUN/CREATININE RATIO 21.66; CALCIUM SERUM 8.1 mg/dL (8.4-10.2); CREATININE SERUM 1.8 mg/dL (0.6-1.4); GLOM FILT RATE Estimated 29.6 mL/min (>60); POTASSIUM 3.4 mmol/L (3.5-5.1)
[2017-03-01 00:21] LABS: %MB 10.8 % (0.0-4.0); MB 125.4 ng/ml
[2017-03-01 03:38] LABS: BASOPHIL# 0.1 X10e3 (0-0.3); BASOPHIL% 0.4 % (0-2.5); HEMATOCRIT 33.5 % (35.0-45.0); LYMPHOCYTE# 1.8 X10e3 (1.0-3.5); LYMPHOCYTE% 8.2 % (17.0-45.0); MEAN CELL VOLUME 88.4 FL (83-96); MEAN CORPUSCULAR HEMOGLOBIN 28.9 PG (28-34); MEAN CORPUSCULAR HGB CONC 32.8 g/dL (30-36); MEAN PLATELET VOLUME 8.4 FL (6.5-11.5); MONOCYTE# 2.2 X10e3 (0-1.0); NEUTROPHIL% 81.4 % (40-75); PLATELET COUNT 207 X10e3 (140-420); RED BLOOD COUNT 3.79 X10e (3.90-5.30); RED CELL DISTRIBUTION WIDTH 13.1 % (11.0-15.5); WHITE BLOOD COUNT 22.1 X10e3 (4.0-10.5)
[2017-03-01 03:40] LABS: DIFF IND NO
[2017-03-01 04:02] LABS: ALBUMIN SERUM 2.8 g/dL (3.5-5.0); ALKALINE PHOSPHATASE 82 U/L (32-92); ALT (SGPT) 50 U/L (10-40); AST (SGOT) 112 U/L (10-42); BLOOD UREA NITROGEN 34 mg/dL (9-23); BUN/CREATININE RATIO 21.25; CALCIUM SERUM 8.1 mg/dL (8.4-10.2); CARBON DIOXIDE 22 mmol/L (22-31); CHLORIDE 106 mmol/L (100-111); CK TOTAL 996 IU/L (26-140); CREATININE SERUM 1.6 mg/dL (0.6-1.4); GLOM FILT RATE Estimated 34.2 mL/min (>60); GLUCOSE FASTING 178 mg/dL (70-110); MAGNESIUM 1.8 mg/dL (1.6-3.0); PHOSPHOROUS 2.3 mg/dL (2.5-4.6); POTASSIUM 3.9 mmol/L (3.5-5.1); PROTEIN TOTAL SERUM 6.2 g/dL (6.0-8.3); SODIUM 135 mmol/L (135-145)
[2017-03-01 04:03] LABS: BILIRUBIN,TOTAL <0.1 mg/dL (0.2-2.0)
[2017-03-01 04:20] LABS: %MB 9.7 % (0.0-4.0); MB 96.4 ng/ml
[2017-03-01 04:38] LABS: ARTERIAL BLD GAS O2 SATURATION 98.6 % (90.0-100.0); ARTERIAL BLOOD GAS CARBOXY HB 0.4 %sat (0.0-9.0); ARTERIAL BLOOD GAS HCO3 21.3 mmol/L; ARTERIAL BLOOD GAS MET HB 0.8 %sat (0.0-2.0); ARTERIAL BLOOD GAS PCO2 36.2 mmHg (35.0-45.0); ARTERIAL BLOOD GAS pH 7.378 (7.350-7.450)
[2017-03-01 05:02] LABS: ARTERIAL BLOOD GAS ALLEN TEST NORMAL; ARTERIAL BLOOD GAS ART SITE RIGHT RADIAL; ARTERIAL DRAW? YES
[2017-03-01 21:41] LABS: BUN/CREATININE RATIO 15.71; CALCIUM SERUM 7.8 mg/dL (8.4-10.2); CREATININE SERUM 1.4 mg/dL (0.6-1.4); GLOM FILT RATE Estimated 40.2 mL/min (>60); POTASSIUM 3.6 mmol/L (3.5-5.1)
[2017-03-02 03:24] LABS: BASOPHIL% 0.1 % (0-2.5); EOSINOPHIL% 0.1 % (0.0-7.0); HEMATOCRIT 28.7 % (35.0-45.0); HEMOGLOBIN 9.7 gm/dL (12.0-16.0); LYMPHOCYTE# 1.2 X10e3 (1.0-3.5); LYMPHOCYTE% 9.5 % (17.0-45.0); MEAN CELL VOLUME 87.4 FL (83-96); MEAN CORPUSCULAR HEMOGLOBIN 29.7 PG (28-34); MEAN PLATELET VOLUME 8.6 FL (6.5-11.5); MONOCYTE% 7.5 % (3.0-12.0); NEUTROPHIL# 10.9 X10e3 (1.5-7.1); NEUTROPHIL% 82.8 % (40-75); PLATELET COUNT 139 X10e3 (140-420); RED BLOOD COUNT 3.28 X10e (3.90-5.30); WHITE BLOOD COUNT 13.1 X10e3 (4.0-10.5)
[2017-03-02 03:34] LABS: DIFF IND NO
[2017-03-02 03:59] LABS: ALBUMIN SERUM 2.7 g/dL (3.5-5.0); BILIRUBIN,TOTAL 0.4 mg/dL (0.2-2.0); CREATININE SERUM 1.4 mg/dL (0.6-1.4); GLOM FILT RATE Estimated 40.2 mL/min (>60); POTASSIUM 3.6 mmol/L (3.5-5.1)
[2017-03-02 20:37] LABS: BUN/CREATININE RATIO 13.07; CALCIUM SERUM 7.6 mg/dL (8.4-10.2); CREATININE SERUM 1.3 mg/dL (0.6-1.4); GLOM FILT RATE Estimated 43.9 mL/min (>60); POTASSIUM 3.5 mmol/L (3.5-5.1)
[2017-03-03 04:06] LABS: BASOPHIL# 0.1 X10e3 (0-0.3); BASOPHIL% 0.6 % (0-2.5); DIFF IND NO; EOSINOPHIL# 0.1 X10e3 (0-0.7); EOSINOPHIL% 0.7 % (0.0-7.0); HEMOGLOBIN 8.7 gm/dL (12.0-16.0); LYMPHOCYTE# 1.3 X10e3 (1.0-3.5); LYMPHOCYTE% 15.7 % (17.0-45.0); MEAN CELL VOLUME 87.2 FL (83-96); MEAN CORPUSCULAR HEMOGLOBIN 29.1 PG (28-34); MEAN CORPUSCULAR HGB CONC 33.4 g/dL (30-36); MEAN PLATELET VOLUME 8.4 FL (6.5-11.5); MONOCYTE# 0.7 X10e3 (0-1.0); NEUTROPHIL# 6.3 X10e3 (1.5-7.1); PLATELET COUNT 119 X10e3 (140-420); RED BLOOD COUNT 2.99 X10e (3.90-5.30); RED CELL DISTRIBUTION WIDTH 12.7 % (11.0-15.5); WHITE BLOOD COUNT 8.4 X10e3 (4.0-10.5)
[2017-03-03 04:29] LABS: BUN/CREATININE RATIO 13.33; CALCIUM SERUM 7.9 mg/dL (8.4-10.2); CREATININE SERUM 1.2 mg/dL (0.6-1.4); GLOM FILT RATE Estimated 48.4 mL/min (>60); POTASSIUM 3.4 mmol/L (3.5-5.1)
[2017-03-03 22:17] LABS: MAGNESIUM 2.4 mg/dL (1.6-3.0); POTASSIUM 3.8 mmol/L (3.5-5.1)
[2017-03-04 07:02] LABS: HEMATOCRIT 28.8 % (35.0-45.0); HEMOGLOBIN 9.4 gm/dL (12.0-16.0); MEAN CORPUSCULAR HEMOGLOBIN 29.2 PG (28-34); MEAN CORPUSCULAR HGB CONC 32.9 g/dL (30-36); MEAN PLATELET VOLUME 9.3 FL (6.5-11.5); RED BLOOD COUNT 3.23 X10e (3.90-5.30); WHITE BLOOD COUNT 7.2 X10e3 (4.0-10.5)
[2017-03-04 07:38] LABS: BUN/CREATININE RATIO 12.72; CALCIUM SERUM 8.2 mg/dL (8.4-10.2); CREATININE SERUM 1.1 mg/dL (0.6-1.4); GLOM FILT RATE Estimated 53.8 mL/min (>60); POTASSIUM 4.7 mmol/L (3.5-5.1)
[2017-03-05 06:41] LABS: BUN/CREATININE RATIO 19.33; CALCIUM SERUM 8.1 mg/dL (8.4-10.2); CREATININE SERUM 1.5 mg/dL (0.6-1.4); MAGNESIUM 2.3 mg/dL (1.6-3.0); POTASSIUM 3.4 mmol/L (3.5-5.1)
[2017-03-05 16:35] LABS: HEPARIN INDUCED PLT AB Weak Positive (Negative); UFH HIGH DOSE 100 1 (()); UFH LOW DOSE 0.1 1 (()); UFH LOW DOSE 0.5 1 (())
[2017-03-05] MEDS ORDERED: CARVEDILOL3.125 MG PO (18:17)
[2017-03-05] MEDS ORDERED: METOCLOPRAMIDE H5 MG PO (18:18)
[2017-03-05] MEDS ORDERED: BRILINTA90 MG PO (18:18)
[2017-03-05] MEDS ORDERED: OMNICEF300 M1 PO (18:25)
[2017-03-05] MEDS ORDERED: LANTUS100 UNITS/ SUBQ (18:47)
[2017-03-05] MEDS ORDERED: HUMALOG100 UNIT/1 (18:47)
== END 2017-03-05 18:59 | disposition home or self-care (01) | DRG 871 ==
LOC: CED 19:55 → CICCU2 22:00 → CEDOF 22:00 → CED 22:02 → CEDOF 22:02 → CICCU2 02-28 01:00 → C3A PCU 03-02 16:03
PROVIDERS: Emergency Medicine; Internal Medicine; Internal Medicine Cardiovascular Disease; Internal Medicine Pulmonary Disease; Nurse Practitioner
PROC: B24BYZZ Ultrasonography of Heart with Aorta using Other Contrast (ICD-10-PCS; principal; 2017-02-28)
DX: A41.89 Other specified sepsis (principal); I21.4 Non-ST elevation (NSTEMI) myocardial infarction; J96.01 Acute respiratory failure with hypoxia; R65.21 Severe sepsis with septic shock; I50.21 Acute systolic (congestive) heart failure; D75.82 Heparin induced thrombocytopenia (HIT); E11.22 Type 2 diabetes mellitus with diabetic chronic kidney disease; I13.0 Hypertensive heart and chronic kidney disease with heart failure and stage 1 through stage 4 chronic kidney disease, or unspecified chronic kidney disease; J18.9 Pneumonia, unspecified organism; E13.10 Other specified diabetes mellitus with ketoacidosis without coma; N17.9 Acute kidney failure, unspecified; N39.0 Urinary tract infection, site not specified; E87.1 Hypo-osmolality and hyponatremia; E44.0 Moderate protein-calorie malnutrition; N18.3 Chronic kidney disease, stage 3 (moderate); Z96.41 Presence of insulin pump (external) (internal); E78.5 Hyperlipidemia, unspecified; K21.9 Gastro-esophageal reflux disease without esophagitis; F41.9 Anxiety disorder, unspecified; F32.9 Major depressive disorder, single episode, unspecified; G47.33 Obstructive sleep apnea (adult) (pediatric); E66.9 Obesity, unspecified; E87.5 Hyperkalemia; Z79.82 Long term (current) use of aspirin; B96.1 Klebsiella pneumoniae [K. pneumoniae] as the cause of diseases classified elsewhere; I25.10 Atherosclerotic heart disease of native coronary artery without angina pectoris; E11.42 Type 2 diabetes mellitus with diabetic polyneuropathy; Z79.4 Long term (current) use of insulin; Z68.33 Body mass index [BMI] 33.0-33.9, adult; E87.6 Hypokalemia; D64.9 Anemia, unspecified; E83.39 Other disorders of phosphorus metabolism
CPT/HCPCS: 36600; 51702; 71010; 74022; 80048; 80053; 80061; 80076; 81003; 82010; 82550; 82553; 82803; 82947; 83605; 83735; 83880; 84100; 84132; 84484; 85025; 85027; 85730; 86022; 87040; 87086; 87186; 93005; 93306; 94640; 94660; 94760; 94761; 96365; 96366; 96375; 97110; 97116; 97163; 97166; 97530; 99291; C9113; J0696; J1644; J1650; J1815; J1940; J1956; J2405; J2765; J3475

== ENCOUNTER 2017-04-21 09:29 | Inpatient (IN) | payer OTHER ==
[~2017-04-21] VITALS: Ht 170.2 cm; Wt 97.0 kg
--- NOTE | ~2017-04-21 | A ---
[facility] Nutrition Therapy DATE: 04/22/17 Patient: RADHA RIBEIRO Physician: JAS Address: [address] [place] [address] Room/Bed: [address], Zip: [place] [address] Admit Date: 04/21/17 Date of : 55 Height: 5 7 Weight: 198 90 NUTRITIONAL ASSESSMENT: REASON: Seen due to diagnosis Admitting dx: 62 y/o female admitted with DKA PMH: Stage III CKD, DM, CAD, CHF, HTN, HLD, NELLA, GERD, anxiety, depression Anthropometrics: Ht: 67", Wt: 213 lbs, BMI: 33 (stage III obese) Labs: Na 134, glucose 344, POC 164-451, A1C 8.9 (01/19/17), BUN 33, creat 1.6, Phos 5.5, GFR 34.2, lipid panel WNL Meds: Lasix, PPI, low SSI, levemir Assessment: Chart reviewed, events noted. See admitting dx and PMH as stated above. Patient previously assessed by RD on 03/01/17 when she was admitted with DKA; note reviewed. During that admission the patient expressed compliance and knowledge about consistent carb diet, and RD internal control manager provided additional education. Per nursing this admission the patient and her daughter are knowledgeable about the diet and the patient is compliant with her insulin at home. She has an insulin pump and takes long-acting + sliding scale insulin. Blood glucose typically 120-150 at home. Glucose was 666 at admission. The patient regularly checks her glucose at home and tried taking 10 units two different times once she noticed hyperglycemia via her insulin pump, to no avail. Questionining whether the insulin pump is malfunctioning/something else is going on. See recs below, will follow hospital course. Dx: Altered nutrition related lab values r/t reduced metabolic capacity, hx DM AEB glucose 666 at admission, POC 164-451, A1C 8.9 on 01/19/17, DKA. Intervention: CC diet Monitoring, Evaluation and Goals: Improvement in labs; reduction in A1C, glucose < 200 mg/dL Recommendations: 1. Agree with consistent carb diet. 2. Optimize insulin regimen to promote adequate blood glucose control. Suggest endocrinology consult. [facility] DATE: 04/22/17 Patient: RADHA RIBEIRO Physician: JAS Address: [address] [place] [address] Room/Bed: [address], Zip: [place] [address] Admit Date: 04/21/17 Date of : 55 Height: 5 7 Weight: [address] previously provided diet education on 03/01/17. Please consult if further education is desired. Will follow Mild nutrition risk Respectfully, Jeri Belle RD, LD Food and Nutritional Services [facility] cc: client file
--- NOTE | ~2017-04-21 | EKG ---
PATIENT: RADHA RIBEIRO UNIT #: [id number] Ventricular Rate: 75 BPM Atrial Rate: 75 BPM P-R Interval: 172 ms QRS Duration: 86 ms Q-T Interval: 426 ms QTC Calculation(Bezet): 475 ms P [place]: 2 degrees Calculated R [place]: 19 degrees Calculated T [place]: 116 degrees Diagnosis Line: Normal sinus rhythm Diagnosis Line: Nonspecific ST and T wave abnormality Diagnosis Line: Prolonged QT Diagnosis Line: Abnormal ECG Diagnosis Line: When compared with ECG of 21-APR-2017 11:12, Diagnosis Line: T wave inversion now evident in Anterior leads Diagnosis Line: Confirmed by BUFFY FLORES MD ([id number]) on 04/22/2017 Diagnosis Line: 6:53:23 PM INTERPRETING MD: MARK MIN
--- NOTE | ~2017-04-21 | EKG ---
PATIENT: RADHA RIBEIRO UNIT #: [id number] Ventricular Rate: 90 BPM Atrial Rate: 90 BPM P-R Interval: 180 ms QRS Duration: 92 ms Q-T Interval: 358 ms QTC Calculation(Bezet): 437 ms P [place]: 54 degrees Calculated R [place]: -9 degrees Calculated T [place]: 52 degrees Diagnosis Line: Normal sinus rhythm Diagnosis Line: Nonspecific ST and T wave abnormality Diagnosis Line: Abnormal ECG Diagnosis Line: When compared with ECG of 02-MAR-2017 06:07, Diagnosis Line: Nonspecific T wave abnormality no longer evident Diagnosis Line: in Inferior leads Diagnosis Line: T wave inversion less evident in Anterolateral Diagnosis Line: leads Diagnosis Line: Confirmed by MIKKI RASHID MD ([id number]) on Diagnosis Line: 04/21/2017 10:44:59 PM INTERPRETING MD: URIEL
--- NOTE | ~2017-04-21 | CO ---
Unit #: [id number] #: [id number] Patient: RADHA RIBEIRO [id number] [address] [place], [place] [address] [id number] I MR#: [id number] NAME: RADHA RIBEIRO ROOM: [facility] Age: Sex: F Admission Date: 04/21/2017 : 1955 Attending Physician: Jayde Drake M.D. Primary Care Physician: Nacho Booker M.D. Consultation Date: 04/21/2017 CONSULTATION REPORT REASON FOR CONSULT ICU management. CHIEF COMPLAINT Elevated blood sugar. HISTORY OF PRESENT ILLNESS This is a well known to our service 62-year-old female with a past medical history significant for chronic kidney disease, diabetes, coronary artery disease, congestive heart failure, hypertension, and hyperlipidemia who presented to the emergency room with elevated blood sugar. The patient stated that she is at her baseline and she wasn't complaining of any fever, chills, night sweats, cough, chest pain, shortness of breath. No sore throat or urinary symptom. Her only symptom is nausea and vomiting but she attributed that to elevated blood sugar and that was not responding to subcutaneous insulin. PAST MEDICAL HISTORY 1. Diabetes. 2. Chronic kidney disease. 3. Coronary artery disease. 4. Congestive heart failure. 5. Obstructive sleep apnea. 6. Hypertension. 7. Hyperlipidemia. 8. GERD. 9. Anxiety. 10. Depression. PAST SURGICAL HISTORY Cardiac cath. SOCIAL HISTORY Patient lives with her family. No history of alcohol, drug abuse or smoking. FAMILY HISTORY Hypertension and coronary artery disease. ALLERGIES No known drug allergies. Unit #: [id number] #: [id number] Patient: RADHA RIBEIRO HOME MEDICATIONS 1. Fluoxetine. 2. Aspirin. 3. Lipitor. 4. Coreg. 5. Brilinta. 6. Humalog. 7. Lasix. 8. Gabapentin. 9. Zestril. 10. Norvasc. REVIEW OF SYSTEMS Twelve point review of systems were obtained and were negative except for nausea and vomiting. PHYSICAL EXAMINATION GENERAL: The patient is in no acute distress. VITAL SIGNS: Blood pressure 123/62, respiratory rate 16, O2 saturation 98%. HEENT: Atraumatic, normocephalic. PERRLA, EOMI. NECK: Supple. No JVD, no lymphadenopathy. CHEST: Clear to auscultation bilaterally. HEART: S1, S2. No murmur, gallops or rubs. ABDOMEN: Soft, nontender. Bowel sounds positive. No hepatosplenomegaly. EXTREMITIES: No edema or cyanosis. SKIN: No rashes. GEOLOGICAL SURVEY FIELD ASSISTANT: Awake, alert, oriented x3. No focal motor/sensory deficit. DIAGNOSTIC STUDIES LABORATORY: Creatinine 1.4, sodium 137, bicarb 16 but it is 22 now. White blood count 10.7, hemoglobin 12.0. IMAGING: Chest x-ray is clear. ASSESSMENT 1. DKA of unclear trigger. 2. Non-ST elevation NC. 3. Chronic kidney disease. 4. Coronary artery disease. 5. Hypertension. 6. Hyperlipidemia. 7. Obstructive sleep apnea. PLAN 1. Will continue patient on insulin drip and IV fluids and we will transition to subcutaneous when anion gap is closed. 2. Will keep NPO except for ice chips. 3. Will change IV fluids to D5 half normal saline as blood sugar is less than 250 at this point. 4. Will trend troponin very closely as this could be the trigger of her DKA as she is well known to have coronary artery disease. 5. No clear source of infection at this point but we will follow procalcitonin to rule out any occult infection. 6. DVT and GI prophylaxis. 7. CPAP at night. Unit #: [id number] #: [id number] Patient: RADHA RIBEIRO I would like to thank Dr. Drake for allowing me to be part of this patient's care. Dictated by... Delia Cox TD: 04/22/2017 06:26 JOB #: [id number] CONSULTATION REPORT Page 1 of 1 X KELL MORAN MD CONSULTATION REPORT
--- NOTE | ~2017-04-21 | HP ---
Unit #: [id number] #: [id number] Patient: RADHA RIBEIRO [id number] [facility]. [place], [place] [address] [id number] MR#: [id number] NAME: RADHA RIBEIRO ROOM: Age: 62 Sex: F Admission Date: 04/21/2017 : 1955 Attending Physician: Sho Villanueva Pa-C Primary Care Physician: Nacho Booker M.D. HISTORY AND PHYSICAL CHIEF COMPLAINT Elevated blood sugar. HISTORY OF PRESENT ILLNESS The patient is a 62-year-old female with a past medical history of chronic kidney disease, diabetes, coronary artery disease, congestive heart failure, hypertension, hyperlipidemia, obstructive sleep apnea, gastroesophageal reflux disease, anxiety/depression, who presented to the emergency department for evaluation of the above. The patient states that she was in her usual state of health until the morning of admission, when she awoke from sleep around 4 with nausea and vomiting. She checked her blood sugar and it ready "high." She gave herself 10 units of NovoLog. At 5:30 blood sugar again read "high" and so she gave an additional 10 units of Humalog. Finally at 8:15 she rechecked the blood sugar and it ready "high." She gave an additional 10 units of NovoLog and presented to the emergency department for further evaluation. She reports more than 10 bouts of emesis this morning. She denies abdominal pain. No fever. No cough or cold symptoms. No diarrhea. No urinary symptoms. Blood sugars are typically in the 100 to 150 range. In the emergency department initial pulse and blood pressure were 101 and 132/79 respectively. Glucose is 666. CO2 15. Anion gap is 21. Chest x-ray is negative. Urinalysis is pending. The order sheet is not on the chart, so I am not exactly sure what she has received. I was told that she was in the process of getting normal saline. She is being admitted to [facility] for evaluation and further treatment. Also of note, the patient's troponin is 0.39. EKG shows normal sinus rhythm with rate of 90 beats per minute. Cardiology has already seen the patient. There are some ST and T wave changes in the lateral leads. PAST MEDICAL HISTORY 1. Admission to [facility] 02/27 through 03/05/2017 for septic shock secondary to Klebsiella pneumoniae urinary tract infection. The patient also had a non-ST elevation myocardial infarction. Medical management was recommended. Additionally, the patient was in diabetic ketoacidosis. She also had respiratory failure requiring BiPAP for approximately 24 hours. 2. Diabetes. 3. Chronic kidney disease, stage 3 with a baseline creatinine of 2.2. The patient sees Dr. Mckenna. 4. Coronary artery disease. 5. Congestive heart failure. The patient's ejection fraction was noted to be 40%-45% on echocardiogram done 02/28/2017. Unit #: [id number] #: [id number] Patient: RADHA RIBEIRO 6. Obstructive sleep apnea on CPAP. 7. Hypertension. 8. Hyperlipidemia. 9. Gastroesophageal reflux disease. 10. Anxiety and depression. PAST SURGICAL HISTORY Cardiac catheterization. SOCIAL HISTORY The patient lives with family. There is no tobacco or alcohol use. She typically walks without assistance. FAMILY HISTORY Notable for there being no history of diabetes. ALLERGIES No known drug allergies. HOME MEDICATIONS 1. Fluoxetine 40 mg b.i.d. 2. Aspirin 81 mg daily. 3. Lipitor 80 mg at bedtime. 4. Carvedilol 3.125 mg b.i.d. 5. Brilinta 90 mg b.i.d. 6. Humalog sliding scale. 7. Lasix 80 mg daily. 8. Gabapentin 600 mg b.i.d. 9. Zestril 5 mg daily. 10. Restasis eyedrops b.i.d. 11. Norvasc 5 mg daily. REVIEW OF SYSTEMS A complete review of systems is negative except as indicated in the history of present illness. The patient states that she has lost an unknown amount of weight within the past couple of months. The patient states that she saw her primary care physician last week and was diagnosed with a urinary tract infection. She was placed on Ciprofloxacin. She took one dose. She then followed up with nephrology and was told that she did not have a urinary tract infection and so stopped taking the medication. PHYSICAL EXAMINATION GENERAL: The patient is a very pleasant female who is awake and alert, in no acute distress. VITALS: Temperature 97.4, pulse 101, respiratory rate 18, blood pressure 132/79, oxygen saturation 99% on room air. HEENT: The head is atraumatic. Mucous membranes are dry. NECK: Supple. Trachea midline. LUNGS: Clear to auscultation bilaterally with no increased work of breathing. HEART: Regular rate and rhythm. She does have a 3/6 systolic ejection murmur. ABDOMEN: Soft and nontender with bowel sounds present in all four quadrants. EXTREMITIES: Nontender with no pedal edema. NEUROLOGIC: The patient is awake and alert. She follows commands. PSYCHIATRIC: Mood and affect are normal. The patient is cooperative. SKIN: Skin of examined areas is warm and dry. Unit #: [id number] #: [id number] Patient: RADHA RIBEIRO DIAGNOSTIC STUDIES IMAGING: Chest x-ray shows nothing acute. LABORATORY: CBC notable for white blood cell count 10.7. Troponin is 0.39. CMP notable for glucose of 666. Sodium is 129 but corrects when glucose is accounted for. CO2 is 15. Anion gap is 21. BUN and creatinine are 37 and 1.8 respectively. Alkaline phosphatase 131. Beta hydroxybutyrate 6.08. BNP is 439, INR is 0.9. Arterial blood gas shows pH 7.304, pCO2 33.9, pO2 86.2 on room air. CARDIOVASCULAR: EKG shows normal sinus rhythm with a rate of 90 beats per minute. There are some nonspecific T wave changes in the lateral leads. ASSESSMENT The patient is a 62-year-old female with 1. Diabetic ketoacidosis. The patient received 1 liter of normal saline in the emergency department. Hemoglobin A1c was 8.9 on 01/19/2017. 2. Anion gap metabolic acidosis with an anion gap of 21. 3. Chronic kidney disease, stage 3, with a baseline creatinine of 2.2. Creatinine today is 1.8. The patient sees Dr. Mckenna. 4. Elevated troponin (0.39). Cardiology has already seen the patient. 5. History of coronary artery disease. 6. Congestive heart failure with an ejection fraction of 40%-45% noted on echocardiogram 02/28/2017. 7. Hypertension. 8. Hyperlipidemia. 9. Obstructive sleep apnea on CPAP. 10. Gastroesophageal reflux disease. 11. Anxiety/depression. PLAN 1. Admit to the ICU. 2. N.p.o. except ice chips. 3. Diabetic ketoacidosis protocol with insulin drip to start now. 4. Check urinalysis with culture and sensitivity. 5. Check magnesium and phosphorus levels. 6. Consult Dr. Lopez regarding ICU admission. 7. Serial cardiac enzymes. 8. Fasting lipid panel. 9. Consult Dr. Catherine, who has already seen the patient regarding elevated troponin. 10. CPAP at home settings. 11. Protonix for GI prophylaxis. 12. SCDs for DVT prophylaxis. 13. P.r.n. Zofran. 14. P.r.n. Tylenol. 15. Repeat labs in the morning. 16. Additional workup and consultants based on the above. Forty minutes critical care time spent in the care of this patient (1-1:40 p.m. ). Dictated by Jayde Drake M.D. Unit #: [id number] #: [id number] Patient: RADHA RIBEIRO AW/gz TD: 04/21/2017 14:23 JOB #: [id number] HISTORY AND PHYSICAL Page 1 of 1 X Jayde Drake MD X HISTORY AND PHYSICAL
--- NOTE | ~2017-04-21 | CR72 ---
[facility] A Service of [facility] & [facility] RADIOLOGY TEXT RESULTS PATIENT: RADHA RIBEIRO [facility] #: [id number] AGE: [address]: Jayde Drake MD SEX: F ORDER DR: [id number] [facility] [address]. [place], [place] [address] [id number] MR#: [id number] Acc #: [id number] NAME: RADHA RIBEIRO : 1955 SEX: F STUDY DATE/TIME: 04/21/2017 10:45 UNIT: [facility] ROOM: STUDY DESCRIPTION: CR Chest Single View Portable Attending Physician: Sho Villanueva Pa-C Ordering Physician: Ed Doc Delia Gunderson Primary Care Physician: Nacho Booker M.D. MEDICAL IMAGING REPORT This report is preliminary unless electronic signature is present EXAM Portable chest. HISTORY High blood sugar, nausea vomiting, shortness of air. FINDINGS Portable view of the chest demonstrates moderate lung volumes. No infiltrates or effusions. Heart, mediastinum unremarkable. Old right upper posterior rib fractures. No pneumothorax. Dictated by... Aminah Gustafson M.D. THIS IS AN ELECTRONICALLY VERIFIED REPORT Aminah Gustafson M.D. at 04/21/2017 5:11 PM Zonia TD: 04/21/2017 13:19 JOB #: [id number] MEDICAL IMAGING REPORT Page 1 of 1 COPY
--- NOTE | ~2017-04-21 | CO ---
Unit #: [id number] #: [id number] Patient: RADHA RIBEIRO [id number] [facility] [place] [facility]. [place], [place] [address] [id number] I MR#: [id number] NAME: RADHA RIBEIRO ROOM: 571 Age: 62 Sex: F Admission Date: 04/21/2017 : 1955 Attending Physician: Kanika Waters M.D. Primary Care Physician: Nacho Booker M.D. Consultation Date: 04/21/2017 CONSULTATION REPORT DICTATED FOR Dr. Vipin Catherine with [facility]. REASON FOR CONSULTATION Elevated troponin. HISTORY OF PRESENT ILLNESS The patient is a 62-year-old white female, who is known to Dr. Angeles with a history of coronary artery disease, where she had a cath in 12/2016 with attempted atherectomy of the LAD chronic total occlusion that was unsuccessful. She also had left circumflex 20% in the mid, RCA 30% proximal, and an LVEF of 55%; although, the echo showed an EF of 40% to 45%. Diabetes, hypertension, hyperlipidemia, GERD, anxiety, depression, chronic kidney disease, obstructive sleep apnea, obesity. The patient also had a recent admission to the hospital for urinary tract infection, DKA, where she had an elevated troponin, non-STEMI. At that time, with the peak troponin of 68. However, with the chronic total occlusion of the LAD, an attempted laser atherectomy in 12/2016 that was unsuccessful, it was decided for medical management with this patient. The patient came into the hospital with vomiting since 04:30 this morning. She states that she woke up, was nauseous and vomiting and checked her blood sugar, it read on the meter too high to read. She states that she checked it couple of more times with the same reading and continued with the vomiting. Therefore, she called EMS to come to the hospital. The patient states since her admission here in the hospital in 02/2017 and discharge, she has had her blood sugars very well controlled at home where they have been running in the 100 to 130s range. Prior to her going to her primary care doctor, her blood sugar had jumped up and she could not get to below 300, which prompted her to go in to be checked for urinary tract infection. The patient states that she got diagnosed with urinary tract infection per her primary care doctor about one week ago. She was started on antibiotics, where she then followed up with her kidney doctor after that who checked her urine and decided that she did not need the antibiotics for the UTI. The patient was stopped on her antibiotics and today woke up feeling very poorly. The patient states that she had some chest tightness this morning around 11:00 a.m. and slightly short of breath and also a little lightheaded. Currently, the patient denies any kind of chest pain or pressure, tightness, shortness of breath, or any other anginal symptoms. PAST MEDICAL HISTORY 1. Coronary artery disease. 2. Cardiac cath in 12/2016 showed chronic total occlusion of the LAD Unit #: [id number] #: [id number] Patient: RADHA RIBEIRO where laser atherectomy was attempted and unsuccessful. LCX was 20% in the mid, RCA 30% proximally, and LVEF at that time was 55%. 3. Echo in 02/2017 showed 40% to 45% EF. 4. Diabetes. 5. Hypertension. 6. Hyperlipidemia. 7. GERD. 8. Anxiety and depression. 9. Chronic kidney disease. 10. Obstructive sleep apnea. 11. Obesity. SOCIAL HISTORY The patient is a nonsmoker, nonalcohol, and nondrug abuser. FAMILY HISTORY Noncontributory. ALLERGIES No known drug allergies. HOME MEDICATIONS Include Neurontin 300 mg in the morning, 300 at bedtime; fluoxetine 40 mg b.i.d.; Lipitor 80 mg at bedtime; Coreg 3.125 p.o. b.i.d.; Colace 100 at bedtime; Lasix 20 mg p.o. daily; famotidine 20 mg daily; aspirin 81 mg daily; Brilinta 90 mg b.i.d. REVIEW OF SYSTEMS A 10-point review of systems negative except for what is listed above in HPI. PHYSICAL EXAMINATION GENERAL: This is a 62-year-old white female, who is alert and oriented x3, in no apparent distress. VITAL SIGNS: Blood pressure is 183/81, temp 97.4, pulse 98, respirations 16. HEENT: Pupils are equal, round, and reactive. Oral mucosa is moist. NECK: No JVD. No thyromegaly. No lymphadenopathy. No carotid bruits. HEART: S1 and S2. No S3 or S4. No clicks, no rubs, no murmurs. LUNGS: Clear. ABDOMEN: Soft. Bowel sounds positive. Nontender and nondistended. Positive vomiting, but it is brown-colored. EXTREMITIES: No swelling. NEUROLOGICAL: No neuro deficits noted. DIAGNOSTIC STUDIES LABORATORY RESULTS: Troponin of 0.39. BNP 439. White blood cells 10.7, hemoglobin 12, hematocrit 37.3, platelets 273. Sodium 129, potassium 4.6, chloride 93, CO2 of 15, glucose 66, BUN 37, creatinine 1.8, GFR is 29.6, AST 29, ALT 31. INR 0.9. CARDIOVASCULAR STUDIES: EKG shows normal sinus rhythm. IMPRESSION 1. Diabetic ketoacidosis. 2. Possible urinary tract infection. 3. Coronary artery disease with chronic total occlusion of the LAD. Unit #: [id number] #: [id number] Patient: RADHA RIBEIRO 4. Hypertension. 5. Hyperlipidemia. 6. Diabetes. 7. Obstructive sleep apnea. 8. Ischemic cardiomyopathy with an EF of 45%. PLAN For now, we will plan to trend the troponins q.6 hours x3 sets. We will also obtain EKG in the morning. We will consult cardiac rehab, but she did not have a cardiac rehab consult following her admission here. We will obtain BMP and Mag in the morning. At this time, no further plans for cardiac workup or intervention on her STORE LEAD as it has been attempted a couple of times in the past with unsuccessful attempt. The patient and family at the bedside, all verbalized the plan of care. Dictated by... KATELYN Jimenez TD: 04/22/2017 15:04 JOB #: [id number] CONSULTATION REPORT Page 1 of 1 X X CONSULTATION REPORT
--- NOTE | ~2017-04-21 | DS ---
Unit #: [id number] #: [id number] Patient: RADHA RIBEIRO [id number] [address] [address] [id number] I MR#: [id number] NAME: RADHA RIBEIRO ROOM: 571 Age: 62 Sex: F Admission Date: 04/21/2017 : 1955 Discharge Date: Attending Physician: Kanika Waters M.D. Primary Care Physician: Nacho Booker M.D. DISCHARGE SUMMARY DISCHARGE DIAGNOSES 1. Diabetic ketoacidosis. 2. Anion gap metabolic acidosis. 3. Elevated troponin, nonspecific. 4. Chronic systolic heart failure, ejection fraction 45%. 5. Hypertension. 6. Chronic kidney disease stage 3. 7. Coronary artery disease. 8. Obstructive sleep apnea, on CPAP. 9. Hypertension. 10. Hyperlipidemia. 11. Gastroesophageal reflux disease. 12. Anxiety. 13. Depression. CONSULTATION 1. Dr. Lopez. 2. Dr. Angeles. PROCEDURES None. LAB DATA Sodium 140, potassium 4.3, creatinine 1.3, glucose 207. Liver enzymes normal. WBC 12.1, hemoglobin 11.3, platelets 232. Maximum troponin elevation is 0.29. ALLERGIES None. DISCHARGE MEDICATIONS 1. Gabapentin 600 p.o. b.i.d. 2. Prozac 40 mg p.o. b.i.d. 3. Lipitor 80 daily. 4. Coreg 3.125 p.o. b.i.d. 5. Norvasc 5 daily. 6. Lasix 40 daily. 7. Lisinopril 5 daily. 8. Humalog sliding scale low dose. 9. Tresiba Flex Touch U100 30 units subcu every evening. 10. Restasis, one drop b.i.d. 11. Aspirin 81 daily. 12. Brilinta 90 mg p.o. b.i.d. 13. Omeprazole 20 p.o. daily [id number]. Unit #: [id number] #: [id number] Patient: RADHA RIBEIRO HOSPITALIZATION COURSE 62-year-old admitted because of uncontrolled blood sugars. DKA with uncontrolled blood sugars. Patient was monitored in ICU with insulin drip. Currently, blood sugars are 207. Patient wants to continue with her home medication, Tresiba, and she wants to follow Dr. Allan as an outpatient. Elevated troponin. She does have a history of coronary artery disease in February 2017 and she has mild (1) of troponin since then, nonspecific. No workup noted per cardiology. Chest pain, likely gastroenterology related, started on omeprazole and follow with Dr. Kothari in there weeks time. Chronic kidney disease stage 3, stable. Discharge home. Follow with family physician in one week time, follow with Dr. Kothari in three weeks time, follow with Dr. Angeles in two weeks time. Dictated by... Delia Cutler/hemalatha TD: 04/23/2017 12:57 JOB #: [id number] DISCHARGE SUMMARY Page 1 of 1 X Kanika Waters MD X DISCHARGE SUMMARY
--- NOTE | ~2017-04-21 | EKG ---
PATIENT: RADHA RIBEIRO UNIT #: [id number] Ventricular Rate: 78 BPM Atrial Rate: 78 BPM P-R Interval: 154 ms QRS Duration: 88 ms Q-T Interval: 410 ms QTC Calculation(Bezet): 467 ms P Longview: 39 degrees Calculated R [place]: -6 degrees Calculated T Longview: 62 degrees Diagnosis Line: Normal sinus rhythm Diagnosis Line: ST and T wave abnormality, consider lateral ischemia Diagnosis Line: Abnormal ECG Diagnosis Line: When compared with ECG of 22-APR-2017 06:01, Diagnosis Line: No significant change was found Diagnosis Line: Confirmed by THOMAS SHEEHAN MD ([id number]) on 04/23/2017 Diagnosis Line: 4:39:24 PM INTERPRETING MD: SISSY MIN
[~2017-04-21 09:29] MED LIST changes: -GABAPENTIN600 MG PO; -LASIX PO; -LISINOPRIL PO; -OMEPRAZOLE20 M2 PO; -PATIENT'S PHARMACY; -PROZAC40 M1 PO; -RESTASIS1 EACH OU; -TRESIBA FL100 UNIT/1 SUBQ
[2017-04-21] MEDS ORDERED: PATIENT'S PHARMACY (10:22)
[2017-04-21] MEDS ORDERED: LASIX80 MG PO (10:22)
[2017-04-21] MEDS ORDERED: GABAPENTIN600 MG PO (10:23)
[2017-04-21] MEDS ORDERED: PROZAC40 M1 PO (10:23)
[2017-04-21] MEDS ORDERED: LISINOPRIL PO (10:23)
[2017-04-21] MEDS ORDERED: NORVASC PO (10:23)
[2017-04-21] MEDS ORDERED: RESTASIS1 EACH OU (10:23)
[2017-04-21 10:41] LABS: BASOPHIL% 0.2 % (0-2.5); EOSINOPHIL% 0.1 % (0.0-7.0); HEMATOCRIT 37.3 % (35.0-45.0); LYMPHOCYTE# 0.4 X10e3 (1.0-3.5); MEAN CELL VOLUME 89.2 FL (83-96); MEAN CORPUSCULAR HEMOGLOBIN 28.7 PG (28-34); MEAN CORPUSCULAR HGB CONC 32.2 g/dL (30-36); MEAN PLATELET VOLUME 9.1 FL (6.5-11.5); MONOCYTE# 0.6 X10e3 (0-1.0); MONOCYTE% 5.3 % (3.0-12.0); NEUTROPHIL# 9.7 X10e3 (1.5-7.1); NEUTROPHIL% 90.4 % (40-75); PLATELET COUNT 273 X10e3 (140-420); RED BLOOD COUNT 4.18 X10e (3.90-5.30); WHITE BLOOD COUNT 10.7 X10e3 (4.0-10.5)
[2017-04-21 10:44] LABS: DIFF IND NO
[2017-04-21 11:00] LABS: POC - CKMB 4.2 ng/mL (0.0-7.9); POC - TROPONIN 0.39 ng/mL (<=0.05)
[2017-04-21 11:20] LABS: ALBUMIN SERUM 4.3 g/dL (3.5-5.0); BETA HYDROXYBUTYRATE 6.08 MMOL/L (0.02-0.27); BILIRUBIN, DIRECT 0.3 mg/dL (0.0-0.2); BILIRUBIN,INDIRECT 1.5 mg/dL (0.0-0.9); BILIRUBIN,TOTAL 1.8 mg/dL (0.2-2.0); BUN/CREATININE RATIO 20.55; CALCIUM SERUM 10.2 mg/dL (8.4-10.2); CREATININE SERUM 1.8 mg/dL (0.6-1.4); GLOM FILT RATE Estimated 29.6 mL/min (>60); POTASSIUM 4.6 mmol/L (3.5-5.1); PROTEIN TOTAL SERUM 8.1 g/dL (6.0-8.3)
[2017-04-21 11:44] LABS: INR 0.9; PROTHROMBIN TIME (PATIENT) 10.3 SECONDS (10.0-11.7)
[2017-04-21 11:49] LABS: PARTIAL THROMBOPLASTIN TIME 26.6 SECONDS (23.5-31.3)
[2017-04-21 12:03] LABS: ARTERIAL BLD GAS O2 SATURATION 94.6 % (90.0-100.0); ARTERIAL BLOOD GAS CARBOXY HB 1.2 %sat (0.0-9.0); ARTERIAL BLOOD GAS HCO3 16.8 mmol/L; ARTERIAL BLOOD GAS MET HB 0.8 %sat (0.0-2.0); ARTERIAL BLOOD GAS PCO2 33.9 mmHg (35.0-45.0); ARTERIAL BLOOD GAS PO2 86.2 mmHg (80.0-100); ARTERIAL BLOOD GAS pH 7.304 (7.350-7.450)
[2017-04-21 12:04] LABS: ARTERIAL BLOOD GAS ALLEN TEST NORMAL; ARTERIAL BLOOD GAS ART SITE LEFT RADIAL; ARTERIAL DRAW? YES
[2017-04-21 13:13] LABS: URINE SOURCE CLEAN CATCH
[2017-04-21 13:20] LABS: URINE APPEARANCE CLEAR; URINE BILIRUBIN NEG (NEG); URINE BLOOD NEG (NEG); URINE COLOR YELLOW; URINE GLUCOSE >1000 MG/DL (NEG); URINE KETONE 3+ (NEG); URINE LEUKOCYTE ESTERASE NEG (NEG); URINE NITRATE NEG (NEG); URINE PROTEIN NEG (NEG); URINE SPECIFIC GRAVITY 1.027 (1.003-1.035); URINE UROBILINOGEN 0.2 MG/DL (NEG)
[2017-04-21 13:28] LABS: CULTURE INDICATED? NO
[2017-04-21 14:15] LABS: MAGNESIUM 2.6 mg/dL (1.6-3.0); PHOSPHOROUS 5.5 mg/dL (2.5-4.6)
[2017-04-21 19:11] LABS: BUN/CREATININE RATIO 23.57; CALCIUM SERUM 9.5 mg/dL (8.4-10.2); CREATININE SERUM 1.4 mg/dL (0.6-1.4); GLOM FILT RATE Estimated 40.2 mL/min (>60); POTASSIUM 4.4 mmol/L (3.5-5.1)
[2017-04-21 19:34] LABS: %MB 7.5 % (0.0-4.0); MB 5.2 ng/ml
[2017-04-22 06:51] LABS: BUN/CREATININE RATIO 20.62; CALCIUM SERUM 9.1 mg/dL (8.4-10.2); CREATININE SERUM 1.6 mg/dL (0.6-1.4); GLOM FILT RATE Estimated 34.2 mL/min (>60); MAGNESIUM 2.2 mg/dL (1.6-3.0); POTASSIUM 4.7 mmol/L (3.5-5.1)
[2017-04-22 07:14] LABS: AMYLASE 8 U/L (0-46); LIPASE 11 U/L (22-51)
[2017-04-22] MEDS ORDERED: TRESIBA FL100 UNIT/1 SUBQ (10:29)
[2017-04-22 11:08] LABS: BUN/CREATININE RATIO 20.62; CALCIUM SERUM 8.9 mg/dL (8.4-10.2); CREATININE SERUM 1.6 mg/dL (0.6-1.4); GLOM FILT RATE Estimated 34.2 mL/min (>60); POTASSIUM 4.2 mmol/L (3.5-5.1)
[2017-04-23 06:05] LABS: BASOPHIL% 0.2 % (0-2.5); EOSINOPHIL# 0.1 X10e3 (0-0.7); EOSINOPHIL% 0.5 % (0.0-7.0); HEMATOCRIT 33.7 % (35.0-45.0); HEMOGLOBIN 11.3 gm/dL (12.0-16.0); LYMPHOCYTE# 1.4 X10e3 (1.0-3.5); LYMPHOCYTE% 11.2 % (17.0-45.0); MEAN CORPUSCULAR HGB CONC 33.6 g/dL (30-36); MEAN PLATELET VOLUME 8.2 FL (6.5-11.5); MONOCYTE# 0.7 X10e3 (0-1.0); MONOCYTE% 5.8 % (3.0-12.0); NEUTROPHIL% 82.3 % (40-75); PLATELET COUNT 232 X10e3 (140-420); RED BLOOD COUNT 3.91 X10e (3.90-5.30); RED CELL DISTRIBUTION WIDTH 14.1 % (11.0-15.5); WHITE BLOOD COUNT 12.1 X10e3 (4.0-10.5)
[2017-04-23 06:46] LABS: MEAN CELL VOLUME 86.2 FL (83-96)
[2017-04-23 06:47] LABS: DIFF IND NO
[2017-04-23 06:49] LABS: ALBUMIN SERUM 3.5 g/dL (3.5-5.0); BILIRUBIN,TOTAL 0.9 mg/dL (0.2-2.0); CALCIUM SERUM 9.4 mg/dL (8.4-10.2); CREATININE SERUM 1.3 mg/dL (0.6-1.4); GLOM FILT RATE Estimated 43.9 mL/min (>60); MAGNESIUM 2.1 mg/dL (1.6-3.0); PHOSPHOROUS 3.7 mg/dL (2.5-4.6); POTASSIUM 4.3 mmol/L (3.5-5.1)
[2017-04-23] MEDS ORDERED: LASIX PO (13:21)
[2017-04-23] MEDS ORDERED: OMEPRAZOLE20 M2 PO (13:22)
== END 2017-04-23 14:18 | disposition home or self-care (01) | DRG 638 ==
LOC: CED 09:29 → CEDOF 13:35 → CED 14:44 → CICCU3 19:53 → C5C 04-22 15:37
PROVIDERS: Family Medicine; Internal Medicine; Internal Medicine Pulmonary Disease; Physician Assistant
DX: E13.10 Other specified diabetes mellitus with ketoacidosis without coma (principal); I13.0 Hypertensive heart and chronic kidney disease with heart failure and stage 1 through stage 4 chronic kidney disease, or unspecified chronic kidney disease; N17.9 Acute kidney failure, unspecified; I50.22 Chronic systolic (congestive) heart failure; N18.3 Chronic kidney disease, stage 3 (moderate); N39.0 Urinary tract infection, site not specified; I25.10 Atherosclerotic heart disease of native coronary artery without angina pectoris; E78.5 Hyperlipidemia, unspecified; G47.33 Obstructive sleep apnea (adult) (pediatric); I25.5 Ischemic cardiomyopathy; K21.9 Gastro-esophageal reflux disease without esophagitis; F41.9 Anxiety disorder, unspecified; F32.9 Major depressive disorder, single episode, unspecified; Z79.82 Long term (current) use of aspirin; Z79.4 Long term (current) use of insulin; R74.9 Abnormal serum enzyme level, unspecified; I25.2 Old myocardial infarction
CPT/HCPCS: 36415; 36600; 71010; 80048; 80053; 80061; 80076; 81003; 82010; 82150; 82308; 82550; 82553; 82803; 82947; 83690; 83735; 83880; 84100; 84484; 85025; 85610; 85730; 93005; 96374; 99285; C9113; J1815; J2405; J2550